=== PATIENT | male | born 1955 | race Caucasian/White ===

== ENCOUNTER 2019-07-11 16:26 | Inpatient (IN) | payer OTHER, MEDICARE ==
[~2019-07-11] VITALS: Ht 175.3 cm; Wt 92.3 kg
[2019-07-11 16:52] LABS: Source, Urine Clean Catch
[2019-07-11 16:57] LABS: Bilirubin, Urine Neg (Neg); Blood, Urine 3+ (Neg); Glucose Qualitative, Urine 4+ (Neg); Ketones, Urine 4+ (Neg); Leukocyte Esterase, Urine Neg (Neg); Nitrite, Urine Neg (Neg); Protein, Urine 2+ (Neg); Urobilinogen, Urine NORM (Normal)
[2019-07-11 16:59] LABS: BASOPHILS ABSOLUTE AUTO 0.06 K/mm3 (0.00-0.23); BASOPHILS PERCENT AUTO 0 % (0-2); EOSINOPHILS PERCENT AUTO 0 % (0-6); Hematocrit 48.1 % (37.0-53.0); Hemoglobin 16.7 g/dL (13.5-17.5); IMMATURE GRAN ABSOLUTE AUTO 0.12 K/mm3 (0.00-0.10); IMMATURE GRAN PERCENT AUTO 1 % (0-1); LYMPHOCYTES ABSOLUTE AUTO 0.92 K/mm3 (0.84-5.20); LYMPHOCYTES PERCENT AUTO 5 % (21-46); MONOCYTES ABSOLUTE AUTO 1.65 K/mm3 (0.16-1.47); MONOCYTES PERCENT AUTO 10 % (4-13); Mean Corpuscular HGB 29.1 pg (26.0-34.0); Mean Corpuscular HGB Conc 34.7 g/dL (31.5-36.5); Mean Corpuscular Volume 84 fL (80-100); Mean Platelet Volume 9.7 fL (9.1-12.4); NEUTROPHILS ABSOLUTE AUTO 14.21 K/mm3 (1.96-9.15); NEUTROPHILS PERCENT AUTO 84 % (41-73); Platelet Count 193 K/mm3 (150-400); RDW Coefficient Variation 13.2 % (11.7-14.2); RDW Standard Deviation 40.6 fL (35.1-46.3); Red Blood Cell Count 5.73 M/mm3 (4.30-5.90); White Blood Cell Count 16.96 K/mm3 (4.00-11.30)
[2019-07-11 17:05] LABS: Base Excess Venous -21.9 mmol/L; Bicarbonate Venous 10.7 mmol/L (24.0-30.0); PCO2 Venous 21.4 mmHg (38-42); pH Blood Venous 7.14 (7.34-7.37)
[2019-07-11 17:09] LABS: U Amphetamine Screen Not Detected; U Barbituate Screen Not Detected; U Benzodiazapine Screen Not Detected; U Buprenorphine Screen Not Detected; U Cannabinoids Screen Not Detected; U Cocaine Screen Not Detected; U Methadone Screen Not Detected; U Methamphetamine Screen Not Detected; U Opiates Screen Not Detected; U Oxycodone Screen Not Detected; U Phencyclidine Screen Not Detected; U Propoxyphene Screen Not Detected
[2019-07-11 17:20] LABS: Troponin I <0.015 ng/mL (0.000-0.040)
[2019-07-11 17:24] LABS: Alanine Aminotransfer (ALT/SGP 26 U/L (12-78); Albumin, Blood 3.1 g/dL (3.4-5.0); Albumin/Globulin Ratio 0.8 (0.8-1.8); Alk Phos 111 U/L (50-136); Anion Gap 25 mmol/L (6-16); Aspartate Aminotrans (AST/SGOT 9 U/L (12-37); Bilirubin, Total 0.8 mg/dL (0.1-1.0); Blood Urea Nitrogen 49 mg/dL (8-24); Bun/Creatinine Ratio 58.1 (12.0-20.0); CO2, Blood 8 mmol/L (21-32); Chloride, Blood 95 mmol/L (98-108); Creatinine, Blood 0.84 mg/dL (0.60-1.20); Globulin, Blood 3.8 g/dL (2.2-4.0); Glomerular Filtration Rate >60 (60-); Glucose, Blood 560 mg/dL (70-99); Potassium, Blood 3.7 mmol/L (3.5-5.5); Sodium, Blood 128 mmol/L (136-145); Total Protein, Blood 6.9 g/dL (6.4-8.2)
[2019-07-11 17:26] LABS: Appearance, Urine Clear (Clear); Color, Urine Yellow (P-Yellow)
[2019-07-11] MEDS ORDERED: NOVOLOG100 UNIT/1 SC (17:33)
[2019-07-11] MEDS ORDERED: INSULANPEN SC (17:33)
[2019-07-11] MEDS ORDERED: ATOR20 (17:34)
[2019-07-11 17:37] LABS: Beta-hydroxybutyrate 102.4 mg/dL (0.2-2.8)
[2019-07-11 17:40] LABS: Red Blood Cells, Urine Not Seen /hpf (0-2); Squamous Epithelial Cells Not Seen /hpf (Few); White Blood Cells, Urine Not Seen /hpf (0-5)
[2019-07-11 17:42] LABS: Bacteria Few /hpf; Hyaline Casts 0-2 /lpf (0-2); Mucus Light (0-Heavy)
[2019-07-11 18:47] LABS: Glucose, Blood 530 mg/dL (70-99); Phosphorus, Blood 3.6 mg/dL (2.5-4.9)
--- NOTE | 2019-07-11 19:44 | NUR ---
PT YELLING FROM ROOM "I'M STUCK", TO PTS ROOM AND FOUND PT ATTEMPTING TO GET OUT OF BED, PT STUCK BETWEEN BED RAIL AND MATTRESS, STILL IN BED. ASSISTED PT BACK INTO BED. PT STS HE WAS TRYING TO GET SOME WATER. EDUCATED PT ON NPO STATUS, PROVIDED ORAL SWAB, INSTRUCTED GLOBAL MARKETING MANAGER LIGHT USE, BED ALARM INITIATED.
[2019-07-11 21:21] LABS: Anion Gap 20 mmol/L (6-16); Blood Urea Nitrogen 47 mg/dL (8-24); Bun/Creatinine Ratio 62.9 (12.0-20.0); CO2, Blood 10 mmol/L (21-32); Calcium, Blood 8.1 mg/dL (8.5-10.1); Chloride, Blood 107 mmol/L (98-108); Creatinine, Blood 0.75 mg/dL (0.60-1.20); Glomerular Filtration Rate >60 (60-); Glucose, Blood 240 mg/dL (70-99); Potassium, Blood 3.6 mmol/L (3.5-5.5); Sodium, Blood 137 mmol/L (136-145)
--- NOTE | 2019-07-11 21:34 | NUR ---
PT TO ICU 3 VIA VÍCTOR WITH ED RN @ 1850, PT ALERT AND ORIENTED TO SELF, LOCATION, EVENT, AND FOLLOWING DIRECTIONS. PT SOMEWHAT RESTLESS IN BED, REPORTS SOME ANXIOUSNESS, ATTEMPTED TO GET OUT OF BED (SEE PREVIOUS NOTE) ATIVAN PROVIDED, RESTLESSNESS IMPROVED SOME CONFUSION NOTED AFTER ADMINISTRATION. O2 SATURATIONS> 90% ON RA, MONITOR SHOWS SINUS RHYTHM, HR 100-110, BP STABLE. BT HYPOACTIVE, PT REPORTS NOT EATING x3-4 DAYS AND VERY LITTLE TO DRINK OVER PAST 3-4 DAYS. PT REPOSITIONING SELF IN BED, R BKA. PT DENIES PAIN AT THIS TIME, REPORTS SOB, NOTIFIED PROVIDER PER ADMISSION COVID SCREENING, NO NEW ORDERS AT THIS TIME. INSULIN INF @ 8.7 UPON ARRIVAL, SEE FLOWSHEET FOR TITRATIONS. 1000ml NS+40MEQ POTASSIUM INF @ 250ml/hr (10MEQ/HR), NS BOLUS INF @ 500ml/hr SWITCHED TO MAINTENANCE OF 200ml/hr ONCE BOLUS COMPLETE.
[2019-07-11 23:42] LABS: Source, Urine Catheter
[2019-07-11 23:50] LABS: Appearance, Urine Clear (Clear); Bilirubin, Urine Neg (Neg); Blood, Urine 4+ (Neg); Color, Urine Yellow (P-Yellow); Glucose Qualitative, Urine 4+ (Neg); Ketones, Urine 4+ (Neg); Leukocyte Esterase, Urine Neg (Neg); Nitrite, Urine Neg (Neg); Protein, Urine 3+ (Neg); Urobilinogen, Urine NORM (Normal)
--- NOTE | 2019-07-11 23:53 | NUR ---
CALL PLACED TO YOANNA LANDRY STATE COMPTROLLER REGARDING PTS ONGOING RESTLESSNESS, PT PULLED IV, ATIVAN ORDERS UPDATED. PT CONTINUED TO BE RESTLESS IN BED, PULLING AT LINES, STS HE NEEDS TO GO TO THE BATHROOM. ATTEMPTED TO ASSIST PT WITH URINAL, PT ATTEMPTED TO CLIMB OUT OF BED, NOT REDIRECTABLE. PT ORIENTED TO SELF ONLY. FOLLOW CALL PLACED TO YOANNA LANDRY NP, NEW ORDERS FOR MOBLEY, PRECEDEX GTT, AND NON VIOLENT WRIST RESTRAINTS. MOBLEY PLACED WITH IMMEDIATE RETURN OF 600ml OF CLEAR YELLOW URINE, SPECIMENT SENT TO LAB. RESTRAINTS PLACED, PT PULLS AT RESTRAINTS. PRECEDEX INITIATED AT 0.4 (SEE FLOWSHEET).
[2019-07-11 23:56] LABS: Bacteria Few /hpf; Red Blood Cells, Urine 0-2 /hpf (0-2); Squamous Epithelial Cells Not Seen /hpf (Few); White Blood Cells, Urine 0-2 /hpf (0-5)
--- NOTE | 2019-07-12 | NUR ---
YOANNA LANDRY TO PTS ROOM, PT RESTLESS IN BED, CONTINUES TO PULL AT RESTRAINTS. ORDER FOR VBG.
--- NOTE | 2019-07-12 00:15 | NUR ---
CALL PLACED TO ANNETTE, PTS STATED EMERGENCY CONTACT PROVIDED UPON ADMISSION TO HOSPITAL. ANNETTE SCHAFFER PT RECENTLY MOVED BACK TO [place] FROM [place] AND LIVES WITH HIS FATHER WHO HAS HX OF DEMENTIA. ANNETTE SCHAFFER PT HAS BEEN ILL FOR SEVERAL DAYS AND HAS BEEN HAVING EPISODES OF AMS. REPORTS PT GOES TO [facility] FOR [facility]ARE BUT HAS BEEN UNABLE TO GET AN APPOINTMENT SINCE MOVING BACK TO [place].
[2019-07-12 01:32] LABS: Base Excess Venous -15.2 mmol/L; Bicarbonate Venous 14.4 mmol/L (24.0-30.0); PCO2 Venous 27.2 mmHg (38-42); PO2 Venous 121 mmHg (38-42); pH Blood Venous 7.25 (7.34-7.37)
[2019-07-12 01:57] LABS: Anion Gap 15 mmol/L (6-16); Blood Urea Nitrogen 41 mg/dL (8-24); Bun/Creatinine Ratio 57.9 (12.0-20.0); CO2, Blood 13 mmol/L (21-32); Calcium, Blood 7.8 mg/dL (8.5-10.1); Chloride, Blood 112 mmol/L (98-108); Creatinine, Blood 0.71 mg/dL (0.60-1.20); Glomerular Filtration Rate >60 (60-); Glucose, Blood 220 mg/dL (70-99); Potassium, Blood 3.8 mmol/L (3.5-5.5); Sodium, Blood 140 mmol/L (136-145)
[2019-07-12 04:12] LABS: BASOPHILS ABSOLUTE AUTO 0.03 K/mm3 (0.00-0.23); BASOPHILS PERCENT AUTO 0 % (0-2); EOSINOPHILS PERCENT AUTO 0 % (0-6); Hematocrit 41.5 % (37.0-53.0); Hemoglobin 14.8 g/dL (13.5-17.5); IMMATURE GRAN ABSOLUTE AUTO 0.05 K/mm3 (0.00-0.10); IMMATURE GRAN PERCENT AUTO 0 % (0-1); LYMPHOCYTES ABSOLUTE AUTO 0.83 K/mm3 (0.84-5.20); LYMPHOCYTES PERCENT AUTO 6 % (21-46); MONOCYTES ABSOLUTE AUTO 1.93 K/mm3 (0.16-1.47); MONOCYTES PERCENT AUTO 15 % (4-13); Mean Corpuscular HGB 28.8 pg (26.0-34.0); Mean Corpuscular HGB Conc 35.7 g/dL (31.5-36.5); Mean Platelet Volume 9.6 fL (9.1-12.4); NEUTROPHILS PERCENT AUTO 79 % (41-73); Platelet Count 163 K/mm3 (150-400); RDW Coefficient Variation 13.2 % (11.7-14.2); RDW Standard Deviation 38.6 fL (35.1-46.3); Red Blood Cell Count 5.13 M/mm3 (4.30-5.90); White Blood Cell Count 13.34 K/mm3 (4.00-11.30)
[2019-07-12 04:14] LABS: Mean Corpuscular Volume 81 fL (80-100)
--- NOTE | 2019-07-12 04:20 | NUR ---
PT TO CT VIA BED WITH THIS RN.
[2019-07-12 04:41] LABS: Anion Gap 9 mmol/L (6-16); Blood Urea Nitrogen 41 mg/dL (8-24); Bun/Creatinine Ratio 57.4 (12.0-20.0); CO2, Blood 16 mmol/L (21-32); Calcium, Blood 7.9 mg/dL (8.5-10.1); Chloride, Blood 114 mmol/L (98-108); Creatinine, Blood 0.71 mg/dL (0.60-1.20); Glomerular Filtration Rate >60 (60-); Glucose, Blood 173 mg/dL (70-99); Potassium, Blood 4.2 mmol/L (3.5-5.5); Sodium, Blood 139 mmol/L (136-145)
--- NOTE | 2019-07-12 06:37 | NUR ---
SHIFT SUMMARY SEE PREVIOUS NOTES, PT WITH INCREASED CONFUSION AND AGITATION, PLACED IN NON VIOLENT WRIST RESTRAINTS AND PRECEDEX GTT INF (SEE FLOWSHEET). PT REMAINS CONFUSED, ORIENTED TO SELF ONLY, DOES NOT FOLLOW DIRECTIONS, AROUSES WITH VERBAL STIMULI AND NURSING CARE. CALL PLACED TO DR CRESPO REGARDING PTS CONFUSION AND REPORT IN H&P OF FALLING AT HOME, CT ORDERED AND COMPLETED. O2 SATURATIONS MAINTAINED>90% ON RA. MONITOR SHOWS SINUS RHYTHM, HR 60'S. MOBLEY IN PLACE DRAINING YELLOW URINE. INSULIN GTT INFUSING, SEE FLOWSHEET FOR TITRATIONS, D5 1/2NS INF @ 200 ml/hr.
--- NOTE | 2019-07-12 07:40 | NUR ---
ASSUMED CARE REPORT RECEIVED FROM JUDY MICHELLE. PT RESTING QUIETLY IN BED. RESTRAINTS ON AND PRECEDEX INFUSING. PRECEDEX TITRATED DOWN PT APPEARS TO BE SLEEPING HEAVILY. INSULIN GTT INFUSING WELL IVF.
[2019-07-12 09:14] LABS: Anion Gap 6 mmol/L (6-16); Blood Urea Nitrogen 39 mg/dL (8-24); Bun/Creatinine Ratio 52.6 (12.0-20.0); CO2, Blood 19 mmol/L (21-32); Calcium, Blood 7.5 mg/dL (8.5-10.1); Chloride, Blood 115 mmol/L (98-108); Creatinine, Blood 0.74 mg/dL (0.60-1.20); Glomerular Filtration Rate >60 (60-); Glucose, Blood 213 mg/dL (70-99); Potassium, Blood 3.9 mmol/L (3.5-5.5); Sodium, Blood 140 mmol/L (136-145)
--- NOTE | 2019-07-12 09:37 | NUR ---
DISCUSSED LABS WITH DR. LINDA. CONTINUE INSULIN GTT AND REPEAT LAB AT 1300.
--- NOTE | 2019-07-12 12:17 | NUR ---
REASSESSMENT: PRECEDEX WAS TITRATED DOWN THROUGHOUT THE MORNING TILL IT WAS OFF. PT CONTINUES TO BE SLEEPY, BUT WAKES UP EASILY. RESTRAINTS TAKEN OFF AT 1100 AND PT BEING WATCHED CLOSELY. BED ALARM ON. PT WOKE UP AND WAS ASKING FOR WATER. GAVE PT A TEASPOON OF WATER AND HE ASPIRATED ON IT. SUCTIONED PT AND PT CONTINUES TO COUGH UP BLACK SPUTUM. HE IS ORIENTED ONLY TO HIMSELF STILL, BUT FOLLOWS DIRECTIONS. SR, BP STABLE. INSULIN GTT STILL INFUSING. CONTINUING TO MONITOR.
[2019-07-12 13:27] LABS: Anion Gap 7 mmol/L (6-16); Blood Urea Nitrogen 35 mg/dL (8-24); Bun/Creatinine Ratio 50.4 (12.0-20.0); CO2, Blood 18 mmol/L (21-32); Calcium, Blood 7.6 mg/dL (8.5-10.1); Chloride, Blood 115 mmol/L (98-108); Glomerular Filtration Rate >60 (60-); Glucose, Blood 186 mg/dL (70-99); Potassium, Blood 3.7 mmol/L (3.5-5.5); Sodium, Blood 140 mmol/L (136-145)
--- NOTE | 2019-07-12 13:50 | NUR ---
CALLED DR. LINDA WITH BMP RESULTS. RECEIVED ORDER TO CONTINUE INSULIN GTT AND RECHECK BMP IN 4 HOURS.
--- NOTE | 2019-07-12 14:41 | NUR ---
HTN PT'S SBP HAS BEEN 180-200S. PRN HYDRALAZINE GIVEN WITH NO IMPROVEMENT. PAIN MEDICATION GIVEN AND SBP REMAINS IN THE LOW 200S. DR. LINDA NOTIFIED AND RECEIVED ORDERS FOR INCREASE IN HYDRALAZINE DOSE AND FOR CLONIDINE PATCH, SEE ORDERS.
[2019-07-12 17:52] LABS: Anion Gap 8 mmol/L (6-16); Blood Urea Nitrogen 28 mg/dL (8-24); Bun/Creatinine Ratio 48.1 (12.0-20.0); CO2, Blood 17 mmol/L (21-32); Calcium, Blood 7.9 mg/dL (8.5-10.1); Chloride, Blood 112 mmol/L (98-108); Creatinine, Blood 0.58 mg/dL (0.60-1.20); Glomerular Filtration Rate >60 (60-); Glucose, Blood 272 mg/dL (70-99); Potassium, Blood 3.3 mmol/L (3.5-5.5); Sodium, Blood 137 mmol/L (136-145)
--- NOTE | 2019-07-12 18:15 | NUR ---
REVIEWED PT'S LABS WITH DR. LINDA. RECEIVED ORDERS FOR IV POTASSIUM AND CONTINGUING LABS. PT'S INSULIN GTT STILL INFUSING. DISCUSSED SWITCHING IV FLUIDS TO D10 IF PT'S BLOOD SUGAR STARTS DECREASING. MONITOR FOR NOW.
--- NOTE | 2019-07-12 21:00 | NUR ---
ASSUMPTION OF CARE ASSUMED CARE OF PT @ 1900, PT ALERT AND ORIENTED TO SELF, EVENT, LOCATION AND FOLLOWING DIRECTIONS. PT MAKES FREQUENT REQUESTS FOR SODA OR WATER, EXPLAINED NPO STATUS DUE TO NAUSEA AND FAILED SWALLOW EVAL TODAY. PT MAINTAINS O2 SATURATIONS ON RA. MONITOR SHOWS SINUS RHYTHM, HR 90'S-105, HTN NOTED. PT MANCINI AND REPOSTIONS SELF IN BED. PT REPORTS SOME NAUSEA, PRN MEDICATIONS PROVIDED FOR RELEIF. MOBLEY IN PLACE DRAINING CLOUDY YELLOW URINE. INSULIN GTT INF, SEE FLOWSHEET FOR TITRATIONS.
[2019-07-12 21:48] LABS: Anion Gap 7 mmol/L (6-16); Blood Urea Nitrogen 23 mg/dL (8-24); Bun/Creatinine Ratio 39.1 (12.0-20.0); CO2, Blood 18 mmol/L (21-32); Calcium, Blood 7.8 mg/dL (8.5-10.1); Chloride, Blood 115 mmol/L (98-108); Creatinine, Blood 0.59 mg/dL (0.60-1.20); Glomerular Filtration Rate >60 (60-); Glucose, Blood 262 mg/dL (70-99); Potassium, Blood 3.6 mmol/L (3.5-5.5); Sodium, Blood 140 mmol/L (136-145)
[2019-07-13 01:34] LABS: Anion Gap 6 mmol/L (6-16); Blood Urea Nitrogen 19 mg/dL (8-24); Bun/Creatinine Ratio 32.6 (12.0-20.0); CO2, Blood 18 mmol/L (21-32); Calcium, Blood 7.8 mg/dL (8.5-10.1); Chloride, Blood 117 mmol/L (98-108); Creatinine, Blood 0.58 mg/dL (0.60-1.20); Glomerular Filtration Rate >60 (60-); Glucose, Blood 168 mg/dL (70-99); Potassium, Blood 3.5 mmol/L (3.5-5.5); Sodium, Blood 141 mmol/L (136-145)
[2019-07-13 05:49] LABS: Anion Gap 6 mmol/L (6-16); Blood Urea Nitrogen 18 mg/dL (8-24); Bun/Creatinine Ratio 32.8 (12.0-20.0); CO2, Blood 19 mmol/L (21-32); Calcium, Blood 7.8 mg/dL (8.5-10.1); Chloride, Blood 117 mmol/L (98-108); Creatinine, Blood 0.55 mg/dL (0.60-1.20); Glomerular Filtration Rate >60 (60-); Glucose, Blood 120 mg/dL (70-99); Potassium, Blood 3.3 mmol/L (3.5-5.5); Sodium, Blood 142 mmol/L (136-145)
--- NOTE | 2019-07-13 07:24 | NUR ---
SHIFT SUMMARY NO ACUTE CHANGES THIS SHIFT, PT REMAINS ALERT, SOME MILD CONFUSION DURING NIGHT, REMAINS CALM COOPERATIVE AND REDIRECTABLE, PT DID NOT SLEEP WELL, AWAKEN FREQUENTLY WITH NURSING CARE. INSULIN GTT TITRATED FOR GLUCOSE CONTROL (SEE FLOWSHEET), CURRENTLY INFUSING AT 6u/hr, CO2 IMPROVING BUT REMAINS LOW. PT FREQUENTLY REQUEST DRINKS OF WATER AND FOOD, REMINDED PT OF FAILED SWALLOW EVAL AND NEED FOR RE-EVALUATION TODAY. MOBLEY REMAINS IN PLACE DRAINING DARK YELLOW TO ORANGE CLOUDY URINE. PT REMAINS ON RA T/O SHIFT, O2 SATURATIONS>90%.
--- NOTE | 2019-07-13 08:59 | NUR ---
ASSUMED CARE OF PT AT 0700. BEDSIDE REPORT FROM VIVIANA KIM. PT RESTING IN BED. WAKES c VERBAL STIMULI. A&OX 3. ANSWERS QUESTIONS APPROPRIATELY. PT ONLY COMPLAINT IS LACK OF FOOD. EDUCATED PT THAT SPEECH THERAPY WOULD REASSESS NPO STATUS THIS SHIFT. ORAL CARE PROVIDED. PT c PRODUCTIVE COUGH, THICK YELLOW REYES SECRETIONS. MANAGING SECRETIONS. LUNGS CLEAR. PT P/W/D. INSULIN INFUSING AT 6 UNITS/HR, D51/2NS AT 200ML/HR. WILL MONITOR CHEMBG q1. MOBLEY PATENT AND DRAINING CLOUDY JORDAN URINE TO GRAVITY. R BKA. KCL INFUSING FOR K 3.[address] LNIDA ROUNDED, CONTINUE INSULIN GTT UNTIL CO2 NORMALIZES. VSS. WILL CONTINUE TO MONITOR.
[2019-07-13 09:31] LABS: Anion Gap 7 mmol/L (6-16); Blood Urea Nitrogen 15 mg/dL (8-24); Bun/Creatinine Ratio 29.4 (12.0-20.0); CO2, Blood 18 mmol/L (21-32); Calcium, Blood 7.4 mg/dL (8.5-10.1); Chloride, Blood 115 mmol/L (98-108); Creatinine, Blood 0.51 mg/dL (0.60-1.20); Glomerular Filtration Rate >60 (60-); Glucose, Blood 116 mg/dL (70-99); Potassium, Blood 3.4 mmol/L (3.5-5.5); Sodium, Blood 140 mmol/L (136-145)
[2019-07-13 14:49] LABS: Anion Gap 5 mmol/L (6-16); Blood Urea Nitrogen 14 mg/dL (8-24); Bun/Creatinine Ratio 25.2 (12.0-20.0); CO2, Blood 19 mmol/L (21-32); Calcium, Blood 7.5 mg/dL (8.5-10.1); Chloride, Blood 116 mmol/L (98-108); Creatinine, Blood 0.56 mg/dL (0.60-1.20); Glomerular Filtration Rate >60 (60-); Glucose, Blood 144 mg/dL (70-99); Potassium, Blood 3.5 mmol/L (3.5-5.5); Sodium, Blood 140 mmol/L (136-145)
--- NOTE | 2019-07-13 15:57 | NUR ---
Initial spiritual care note: Mr. Johnson is non-cheondoism, but felt comfortable enough to talk to me about the of his dad last night. He has been living with his father and trying to care for him. Aaron feels guilty that he wasn't there. His mom last year. He has also lost his only brother. His [id number] appears to be a good support. We spoke at length about his numerous losses, and he responded well to gentle bereavement international student counselor and emotional affirmation. He will certainly benefit from on-going international student counselor. I will continue to see Aaron as schedule permits.
--- NOTE | 2019-07-13 17:52 | NUR ---
SHIFT SUMMARY PT PHYSICAL ASSESSMENT UNCHANGED THIS SHIFT. PT CONTINUES ON INSULIN DRIP AT 6 UNITS/HR AND D5 1/2 NS AT 200ML/HR. CHEMBG 110'S-150'S THIS SHIFT. REPEAT CO2 19. PT CONTINUES TO BE NPO POST REPEAT SWALLOW EVAL BY ST TODAY, PLAN FOR REEVAL TOMORROW. PT WORKED c PT TODAY, WEAK, ONE PERSON ASSIST TO CHAIR. BED BATH AND ORAL CARE q4 COMPLETE TODAY. MOBLEY D/C'D. PT ABLE TO USE URINAL INDEPENDENTLY. VSS. WILL CONTINUE TO MONITOR UNTIL REPORT TO ONCOMING NURSE.
--- NOTE | 2019-07-13 19:51 | NUR ---
ASSUMED CARE OF PT AT 1900. REPORT RECEIVED, PT PARTICIPATED. NO FAMILY PRESENT. PT IS ALERT, ORIENTED, AND IN PLEASANT MOOD. PT WANTS TO EAT, LEMON SWABS GIVEN. PT COUGHING WITH WET SWABS.
[2019-07-13] MEDS ORDERED: ZOCOR20 MG PO (19:57)
[2019-07-13] MEDS ORDERED: LISI20 PO (19:57)
[2019-07-14 03:25] LABS: BASOPHILS ABSOLUTE AUTO 0.02 K/mm3 (0.00-0.23); BASOPHILS PERCENT AUTO 0 % (0-2); EOSINOPHILS ABSOLUTE AUTO 0.08 K/mm3 (0.00-0.68); EOSINOPHILS PERCENT AUTO 1 % (0-6); Hematocrit 34.6 % (37.0-53.0); Hemoglobin 12.2 g/dL (13.5-17.5); IMMATURE GRAN ABSOLUTE AUTO 0.11 K/mm3 (0.00-0.10); IMMATURE GRAN PERCENT AUTO 2 % (0-1); LYMPHOCYTES ABSOLUTE AUTO 1.43 K/mm3 (0.84-5.20); LYMPHOCYTES PERCENT AUTO 20 % (21-46); MONOCYTES ABSOLUTE AUTO 0.73 K/mm3 (0.16-1.47); MONOCYTES PERCENT AUTO 10 % (4-13); Mean Corpuscular HGB 28.9 pg (26.0-34.0); Mean Corpuscular HGB Conc 35.3 g/dL (31.5-36.5); Mean Corpuscular Volume 82 fL (80-100); Mean Platelet Volume 9.7 fL (9.1-12.4); NEUTROPHILS ABSOLUTE AUTO 4.97 K/mm3 (1.96-9.15); NEUTROPHILS PERCENT AUTO 68 % (41-73); Platelet Count 116 K/mm3 (150-400); RDW Coefficient Variation 14.1 % (11.7-14.2); RDW Standard Deviation 41.9 fL (35.1-46.3); Red Blood Cell Count 4.22 M/mm3 (4.30-5.90); White Blood Cell Count 7.34 K/mm3 (4.00-11.30)
[2019-07-14 03:45] LABS: Anion Gap 3 mmol/L (6-16); Blood Urea Nitrogen 8 mg/dL (8-24); Bun/Creatinine Ratio 16.9 (12.0-20.0); CO2, Blood 22 mmol/L (21-32); Calcium, Blood 7.1 mg/dL (8.5-10.1); Chloride, Blood 113 mmol/L (98-108); Creatinine, Blood 0.47 mg/dL (0.60-1.20); Glomerular Filtration Rate >60 (60-); Glucose, Blood 131 mg/dL (70-99); Sodium, Blood 138 mmol/L (136-145)
--- NOTE | 2019-07-14 05:19 | NUR ---
NOTIFIED DR. CRESPO OF PT'S DKA STATUS AND LAB VALUES, INCLUDING IMPROVED CO2 LEVEL 40MEQ IV K+ ORDERED.
--- NOTE | 2019-07-14 06:20 | NUR ---
PT HAS BEEN AWAKE MOST OF THE NIGHT, WITH FREQUENT GLUCOSE CHECKS. PT IS COOPERATIVE WITH CARE. PT TURNING SELF VERY FREQUENTLY BACK AND FORTH. PT REMAINED ALERT AND ORIENTED THE ENTIRE NIGHT, WITH NO SIGNS OF CONFUSION. PT STATES A LIST OF ALL THE FOODS HE WISHES TO EAT SOON WE LET HIM, BUT DOES SO IN A JOKING WAY, WITH A SMILE, NOT ANGRY. PT GIVEN MORE LEMON SWABS.
--- NOTE | 2019-07-14 09:39 | NUR ---
CARE ASSUMED CARE AND REPORT ASSUMED FROM MIKAYLA KIM. PT SLEEPING BUT EASILY AROUSABLE. INSULIN GTT AND D5 1/2 NS INFUSING. LANTUS ADMINISTERED AT 0845. WILL TURN OFF INSULIN GTT AND WILL MONTIOR BLOOD SUGAR CLOSELY. NSR, HR 80S. BP WNL. AFEBRILE. POTASSIUM REPLACEMENT INFUSING. STRICT NPO AT THIS TIME. AWAITING SPEECH FOR REEVALUATION. PT A/O X 3, CALM AND COOPERATIVE THIS AM. WILL CONTINUE TO MONITOR.
--- NOTE | 2019-07-14 11:23 | NUR ---
REASSESSMENT PT WENT FOR BARIUM SWALLOW EVAL AND FAILED. NOW BACK IN HIS ROOM AND IS UPSET ABOUT NOT BEING ABLE TO EAT OR DRINK ANYTHING. CHLOROSEPTIC SPRAY ADMINISTERED FOR THROAT PAIN PER PT REQUEST. VSS. AFEBRILE. NSR, HR 80S. BP WNL. INSULIN GTT DISCONTINUED. AWAITING MEDICAL FLOOR BED. WILL CONTINUE TO MONITOR.
--- NOTE | 2019-07-14 11:38 | NUR ---
TRANSFER HANDOFF REPORT CALLED TO [facility] ON MEDICAL FLOOR. PT TO BE TRANSFERRED TO ROOM 309.
--- NOTE | 2019-07-14 11:50 | NUR ---
PT. ARRIVED TO ROOM VIA BED, USED SLIDER SHEET TO MOVE HIME TO BED HE SAID HE WAS TOO WEAK TO STAND AND TRANSFER TO BED. PT. COVERED WITH SHEET ONLY , NO CLOTHES ON. PT. APPEARS TO BE SOMEWHAT CONFUSED TO WHAT DAY OR PLACE THIS WAS. ASKED IF PT. ИРИНА THE PELAE[place] LIVED HERE, ORIENTED HIM TO WHERE HE WAS AND THE ROOM HE WAS IN. PT'S PROSTHETIC BROUGHT TO ROOM WITH HIM FOR HIS RBKA. PT. UNHAPPY HE CANT HAVE ANYTHING TO EAT OR DRINK. PT. GIVEN LEMON GLYCERIN SWABS. .
[2019-07-14 13:29] LABS: Anion Gap 7 mmol/L (6-16); Blood Urea Nitrogen 7 mg/dL (8-24); Bun/Creatinine Ratio 14.4 (12.0-20.0); CO2, Blood 21 mmol/L (21-32); Calcium, Blood 7.4 mg/dL (8.5-10.1); Chloride, Blood 110 mmol/L (98-108); Creatinine, Blood 0.49 mg/dL (0.60-1.20); Glomerular Filtration Rate >60 (60-); Glucose, Blood 261 mg/dL (70-99); Potassium, Blood 3.8 mmol/L (3.5-5.5); Sodium, Blood 138 mmol/L (136-145)
--- NOTE | 2019-07-14 16:26 | NUR ---
Spoke with Bedside JUDY Saldivar and discussed case. Janna reports Pt is not willing to consider peg tube placement. Spoke with [facility] prior to visit and discussed case. Pt failed barium swallow eval today. Karla is recommending strict NPO. Karla reports Pt has some possible rehab potential to regain safe swallow but will be a lengthy proces of 8 weeks or more. Pt resting in bed upon arrival. Engaged in therapeutic discussion and listening. Listened as Pt reports feeling down due to his most recent findings regarding his swallow and his recent loss of his dad. Continued therapeutic listening and reasoning for not wanting a peg tube placement. Discussed the potential of tube placement being temporary until he regains a safe swallow. Pt reports he is willing to consider peg tube placement if there is potential for just being temporary and continued ST therapy. Educated Pt of the importance of complying with remaining NPO with peg tube placement and the implications of taking food and fluid by mouth. Pt is agreeable for continued therapeutic Palliative Care visits. Spoke with Bedside JUDY Saldivar and discussed case. Spoke with Dr Jackson, discussed case, and relayed Pt's willingness to consider peg tube. Dr Jackson will place consult. Palliative Care will remain available.
--- NOTE | 2019-07-14 18:06 | NUR ---
PT. SLEEPING, CLINIMIX AND FATTY LIPIDS INFUSING. PALLIATIVE CARE NOTIFIED OF PT'S REQUEST TO EAT AND DRINK, NO MATTER WHAT HAPPENS. THATS NO WAY TO LIVE STATES PT. AFTER TALKING WITH DEVEN WHITNEY PALLIATIVE CARE RN HE HAS DECIDED HE WOULD TRY A FEEDING TUBE. DR. VÁSQUEZ NOTIFIED OF NEED FOR FEEDING TUBE,HE WILL SEE PT. IN AM.
[2019-07-15 05:16] LABS: BASOPHILS ABSOLUTE AUTO 0.01 K/mm3 (0.00-0.23); BASOPHILS PERCENT AUTO 0 % (0-2); EOSINOPHILS ABSOLUTE AUTO 0.05 K/mm3 (0.00-0.68); EOSINOPHILS PERCENT AUTO 1 % (0-6); Hematocrit 38.9 % (37.0-53.0); Hemoglobin 13.5 g/dL (13.5-17.5); IMMATURE GRAN PERCENT AUTO 1 % (0-1); LYMPHOCYTES ABSOLUTE AUTO 1.28 K/mm3 (0.84-5.20); LYMPHOCYTES PERCENT AUTO 15 % (21-46); MONOCYTES ABSOLUTE AUTO 0.96 K/mm3 (0.16-1.47); MONOCYTES PERCENT AUTO 12 % (4-13); Mean Corpuscular HGB 28.8 pg (26.0-34.0); Mean Corpuscular HGB Conc 34.7 g/dL (31.5-36.5); Mean Corpuscular Volume 83 fL (80-100); Mean Platelet Volume 9.8 fL (9.1-12.4); NEUTROPHILS ABSOLUTE AUTO 5.89 K/mm3 (1.96-9.15); NEUTROPHILS PERCENT AUTO 71 % (41-73); Platelet Count 139 K/mm3 (150-400); RDW Coefficient Variation 13.9 % (11.7-14.2); RDW Standard Deviation 41.1 fL (35.1-46.3); Red Blood Cell Count 4.69 M/mm3 (4.30-5.90); White Blood Cell Count 8.29 K/mm3 (4.00-11.30)
--- NOTE | 2019-07-15 05:58 | NUR ---
SUMMARY NO ISSUES NOTED. PT VOIDING WELL. PT CBG CHECKED AND TX PER EMAR. PT HAS SLEPT WELL T/O SHIFT. PT CURRENTLY SLEEPING IN NO DISTRESS. CALL LIGHT IN REACH.
[2019-07-15 06:00] LABS: Anion Gap 7 mmol/L (6-16); Blood Urea Nitrogen 11 mg/dL (8-24); Bun/Creatinine Ratio 24.7 (12.0-20.0); CO2, Blood 24 mmol/L (21-32); Calcium, Blood 7.6 mg/dL (8.5-10.1); Chloride, Blood 106 mmol/L (98-108); Creatinine, Blood 0.45 mg/dL (0.60-1.20); Glomerular Filtration Rate >60 (60-); Glucose, Blood 300 mg/dL (70-99); Magnesium, Blood 2.5 mg/dL (1.6-2.4); Phosphorus, Blood 2.2 mg/dL (2.5-4.9); Potassium, Blood 3.7 mmol/L (3.5-5.5); Sodium, Blood 137 mmol/L (136-145)
--- NOTE | 2019-07-15 17:50 | NUR ---
SHIFT SUMMARY PATIENT DENIES PAIN, NAUSEA, AND SHORTNESS OF BREATH. PATIENT WORKED WITH PT TODAY. PATIENT UP IN WHEELCHAIR STAND PIVOT. DR. BAUMAN CONSULTED ON PATIENT. PATIENT AGREED TO PEG TUBE PLACEMENT. PATIENT STRICT NPO BUT HAS STATED MANY TIMES THAT "IT IS HIS BODY AND HIS CHOICE' WHEN ADVISED AGAINST SUCKING ON MOISTENED TOOTHETTES. PATIENT HAS BEEN MADE AWARE OF THE RISKS OF ASPIRATION SEVERAL TIMES. DR. LINDA INFORMED. CLINIMIX AND LIPID NUTRITION RUNNING.
[2019-07-16 04:36] LABS: BASOPHILS ABSOLUTE AUTO 0.01 K/mm3 (0.00-0.23); BASOPHILS PERCENT AUTO 0 % (0-2); EOSINOPHILS ABSOLUTE AUTO 0.07 K/mm3 (0.00-0.68); EOSINOPHILS PERCENT AUTO 1 % (0-6); Hemoglobin 12.9 g/dL (13.5-17.5); IMMATURE GRAN ABSOLUTE AUTO 0.05 K/mm3 (0.00-0.10); IMMATURE GRAN PERCENT AUTO 1 % (0-1); LYMPHOCYTES ABSOLUTE AUTO 1.17 K/mm3 (0.84-5.20); LYMPHOCYTES PERCENT AUTO 16 % (21-46); MONOCYTES ABSOLUTE AUTO 1.13 K/mm3 (0.16-1.47); MONOCYTES PERCENT AUTO 16 % (4-13); Mean Corpuscular HGB 29.3 pg (26.0-34.0); Mean Corpuscular HGB Conc 34.9 g/dL (31.5-36.5); Mean Corpuscular Volume 84 fL (80-100); NEUTROPHILS ABSOLUTE AUTO 4.78 K/mm3 (1.96-9.15); NEUTROPHILS PERCENT AUTO 66 % (41-73); Platelet Count 144 K/mm3 (150-400); RDW Coefficient Variation 13.7 % (11.7-14.2); RDW Standard Deviation 41.9 fL (35.1-46.3); Red Blood Cell Count 4.41 M/mm3 (4.30-5.90); White Blood Cell Count 7.21 K/mm3 (4.00-11.30)
[2019-07-16 04:53] LABS: Anion Gap 7 mmol/L (6-16); Blood Urea Nitrogen 12 mg/dL (8-24); Bun/Creatinine Ratio 27.6 (12.0-20.0); CO2, Blood 27 mmol/L (21-32); Calcium, Blood 7.8 mg/dL (8.5-10.1); Chloride, Blood 103 mmol/L (98-108); Creatinine, Blood 0.43 mg/dL (0.60-1.20); Glomerular Filtration Rate >60 (60-); Glucose, Blood 274 mg/dL (70-99); Potassium, Blood 3.5 mmol/L (3.5-5.5); Sodium, Blood 137 mmol/L (136-145)
--- NOTE | 2019-07-16 12:06 | NUR ---
SOME PARTS OF COMPUTER ON DOWN TIME. UNABLE TO CHART VITALS ON FLOW SHEET. VS TEMP 98.5 RESP RATE 20 HEART RATE 83 O2 SAT 96% BP 177/88.
--- NOTE | 2019-07-16 12:37 | NUR ---
PT TRANSPORTED TO [facility]. AGREES WITH PLANNED PROCEDURE. LUNG SOUNDS CLEAR.
--- NOTE | 2019-07-16 14:35 | NUR ---
07/16/19 1435 Neida Escobedo [facility] [place]. SEE ANESTESIA RECORD
--- NOTE | 2019-07-16 17:49 | NUR ---
SHIFT SUMMARY PATIENT UP IN WHEELCHAIR THIS MORNING. PATIENT WENT FOR PEG TUBE PLACEMENT THIS AFTERNOON. PEG MAY BE USED FOR MEDICATION AND FEED INITIATED 4 HOURS AFTER PLACEMENT. PATIENT DENIES PAIN, NAUSEA, AND SHORTNESS OF BREATH. PATIENT MEDICATED X1 FOR ELEVATED BLOOD PRESSURE.
--- NOTE | 2019-07-16 21:12 | NUR ---
PT HAS INCREASED AGGITATION DUE TO NPO ORDER, PT ATTEMPTED TO CONSUME STERIL WATER BY MOUTH FROM CONTAINER. REMOVED STERIL WATER FROM ROOM AND RESTATED THE IMPORTANCE OF FOLLOWING THE NPO ORDER TO PT AND NOTIFIED NURSE.
--- NOTE | 2019-07-17 02:14 | NUR ---
LATE NOTE' 2029 Patient temp elevated at start of shift. not amenable to tylenol. BP back up in 190's as it was at 1700 when he was given hydralazine for a blood pressure of 199/99. Call placed to night hospitalist to inform. orders received and IV metoprolol and childrens ibuprophen elixer given per emar. 2099 Patient angry that he cannot have more green swabs to suck on with H20 and Juice. I explained again as it was yesterday, that he runs the risk of aspiration which could possibly be the reason for his temp right now. Awaiting CXR results. 2229. Tube feeding started at 25 ml hour with q 4 hour 30ml flushes. Patient tolerating well.
[2019-07-17 04:57] LABS: BASOPHILS ABSOLUTE AUTO 0.04 K/mm3 (0.00-0.23); BASOPHILS PERCENT AUTO 0 % (0-2); EOSINOPHILS ABSOLUTE AUTO 0.03 K/mm3 (0.00-0.68); EOSINOPHILS PERCENT AUTO 0 % (0-6); Hematocrit 35.2 % (37.0-53.0); Hemoglobin 12.3 g/dL (13.5-17.5); IMMATURE GRAN ABSOLUTE AUTO 0.05 K/mm3 (0.00-0.10); IMMATURE GRAN PERCENT AUTO 1 % (0-1); LYMPHOCYTES ABSOLUTE AUTO 1.31 K/mm3 (0.84-5.20); LYMPHOCYTES PERCENT AUTO 13 % (21-46); MONOCYTES ABSOLUTE AUTO 1.34 K/mm3 (0.16-1.47); MONOCYTES PERCENT AUTO 13 % (4-13); Mean Corpuscular HGB 29.3 pg (26.0-34.0); Mean Corpuscular HGB Conc 34.9 g/dL (31.5-36.5); Mean Corpuscular Volume 84 fL (80-100); Mean Platelet Volume 9.3 fL (9.1-12.4); NEUTROPHILS ABSOLUTE AUTO 7.65 K/mm3 (1.96-9.15); NEUTROPHILS PERCENT AUTO 73 % (41-73); Platelet Count 152 K/mm3 (150-400); RDW Coefficient Variation 13.7 % (11.7-14.2); RDW Standard Deviation 41.7 fL (35.1-46.3); White Blood Cell Count 10.42 K/mm3 (4.00-11.30)
--- NOTE | 2019-07-17 06:23 | NUR ---
REMEDIATION CONSULTANT SUMMARY Patient started shift with a a VEWS score of 6. with an elevated temp, HR and BP. (see vital signs flowsheet) , after receiving new orders for IV metoprolol, tele and motrin elixer, all elevated vitals resolved to baseline. Patient tolerating jevity 1.2 tube feeding without discomfort or any residual. Per instruction, rate was just increased to 35ml/hr with 30 ml flush every 4 hours. Still very labile and unhappy about not being able to take anything oral but lemon glycerine swabs. At one point, patient attempted to drink sterile water that was in room for tube feed, but was stopped before he could. Again, was notified, and a one time dose of 0.5mg xanax was given via peg. Patient was able to relax and discuss his frustrations with this nurse in a rational fashion, then fall asleep for approx 3 hours.
--- NOTE | 2019-07-17 18:22 | NUR ---
a+o, cooperative with care, tried to sleep all day but worked with therapy, took medication and followed dr's orders mostly, repeatedly asked for something to drink and when he would be allowed to drink, explained his dx each time he would agree then later ask again, per dr's request changed size of wrap, diet changed as was cbg, blood sugar still running high but getting better, call light in reach, bed in low position, rm air, clinamix infusing, bolus feeding done, flushing
--- NOTE | 2019-07-18 04:18 | NUR ---
SHIFT SUMMARY ADMITTED FOR DKA. FULL CODE. PEG TUBE INSTALLED ON 07/16/19. PT IS STRICT NPO (HE IS VERY ANGRY ABOUT THIS AND DEMANDS ROOT BEER FILLED MOUTH SWABS CONTINUOUSLY), THIS PT HAS BEEN EVALUATED BY ST AND HAD A BARIUM SWALLOW EVAL, HE IS AN EXTREME ASPIRATION RISK. HE IS GIVEN BOLUS FEEDINGS VIA PEG, SCHEDULED. ALL MEDS ARE GIVEN CRUSHED VIA PEG. HE NEEDS HIS BLOOD GLUCOSE CHECKED BEFORE FEEDINGS AND BEFORE HUMALOG ADMIN. HE IS GIVEN INSULIN BEFORE FEEDINGS WELL (SEE EMAR FOR SPECIAL INSTRUCTIONS). HE HAS A RT BKA. TELEMETRY IS MONITORING: NSR W/PAC'S @ 82 BPM. HE APPEARS A&O X4, ON RA, SUCTIONS HIMSELF. HE IS AWAITING PLACEMENT. HX: DM2, FREQUENT FALLS, HTN.
--- NOTE | 2019-07-18 11:43 | NUR ---
allowing pt to have fluids via a spunge, pt insisting on holding the glass himself, limited amt and time, pt has cough and is self suctioning, nurse express concern r/pt choking or attempting to drink fluid, explained to pt the risk he was taking and strongly advised he not try drinking, provided him with a possible scenario for return to po foods in months not days, pt fed via tube sitting upright in bed, when feeding stopped pt lowered hob so he could sleep, reports fluid felt like it was coming up his throat, started coughing and using suction, nurse returned hob to as upright as it would go, coughing reduced, will try feeding smaller amt next time
--- NOTE | 2019-07-18 17:51 | NUR ---
trouble getting fluids to stay down, even sitting on side of bed pt states he felt that the food was coming up his throat, tried reducing amount infusing, finally after consulting the diatician cut amount in half gave with nausea medication, pt was able to tolerate feeding, will pass on to noc shift for next feeding
--- NOTE | 2019-07-19 06:25 | NUR ---
SHIFT SUMMARY PATIENT ALERT AND ORIENTED. DECLINED PM TUBE FEEDING. IV IN R HAND BECAME SWOLLEN AND TENDER TO FLUSH, IV WAS REMOVED AND NEW IV PLACED IN HIS R FOREARM. IV PATENT AND FLUSHED. PATIENT WAS PLEASANT OVERNIGHT. BED IN LOWEST POSITION WITH WHEELS LOCKED. CALL LIGHT WITHIN REACH. REPORT GIVEN TO ONCOMING RN.
--- NOTE | 2019-07-19 17:08 | NUR ---
continues to have issues processing food via the peg tube, and elisabet have been consulted, will implement orders and any suggestions that might work, up in wc exploring the halls during the day, compliant with care but, new iv working well, remains frusterated with need for being npo, rm air, call light in reach, a+o
--- NOTE | 2019-07-20 06:00 | NUR ---
SHIFT SUMMARY PATIENT ALERT AND ORIENTED. GOT UP INTO HIS WHEELCHAIR WITH MINIMAL ASSISTANCE AND WAS ABLE TO ROAM AROUND THE UNIT FOR A WHILE BEFORE GOING BACK TO BED. PATIENT HAD NO COMPLAINTS OF NAUSEA OR VOMITING OVERNIGHT.IV PATENT AND FLUSHED. BED IN LOWEST POSITION WITH WHEELS LOCKED. CALL LIGHT AND BELONGINGS WITHIN REACH. REPORT GIVEN TO ONCOMING RN.
--- NOTE | 2019-07-20 11:03 | NUR ---
THIS NURSE RECEIVED REPORT AT 0700 FROM STRUCTURER NURSE WHO STATED THAT THIS PATIENT WAS TO RECEIVE INTERMITTANT FEEDINGS STARTING AT 0800 AT A RATE OF 100ML/HR FOR 30 MINUTES. WHEN THIS NURSE WENT TO VERIFY THIS ACTION VIA ORDERS, THIS NURSE FOUND THAT THAT WAS NOT THE CASE. AT 0730 THIS NURSE CONTACTED RAMSES DUNCAN TO CLARIFY ORDERS. PATIENT STATED TO NURSE THAT HE DOES NOT WANT BOLUS FEEDS BECAUSE "THE WAY THEY MADE HIM FEEL SICK." THIS NURSE EDUCATED HIM ON ORDERS AND INITIATED FEEDING VIA [place] PUMP AT 0830 AT AT RATE OF 10 MLS/HR. PT HOB ELEVATED AT 45 DEGREES. PATIENT STATED THAT "THAT WAS NOT GOING TO HAPPEN." AND THAT CONTINUOUS FEEDS WERE NOT GOING TO WORK FOR HIM. HE STATED THAT HE WANTED TO NAP. THIS NURSE ADRESSED CONCERNS WITH RAMSES DUNCAN. DR BRITTON CALLED AT 1110 AND NOTIFIED THAT PATIENT WAS LAYING DOWN TO SLEEP DURING CONTINTUNOUS FEEDS DESPITE EDUCATION NOT TO. FEED HELD UNTIL PATIENT IS WILLING TO SIT UP AT 45 DEGREES. THIS NURSE WILL ALSO DISCUSS WITH RAMSES BRASHER ABOUT REDUCED VOLUME BOLUS FEEDS PER DR. BRITTON. CHANGES BEING MADE TO INSULIN COVERAGE AND CGS AT THIS TIME.
--- NOTE | 2019-07-20 14:09 | NUR ---
THIS NURSE CALLED DR BRITTON AGAIN TO UPDATE HER ON FEEDINGS AND INSULIN SCHEDULE. PER RAMSES DUNCAN, PATIENT WANTS TO SLEEP TODAY AND THEN INITIATE FEEDING SCHEDULE TONIGHT. PATIENT IS WILLING TO SIT UP AT 45 DEGREES TONIGHT AND WANTS TO SLEEP TODAY. CBG Q6 AT THIS POINT AND HUMALOG LSS Q6. PT SLEEPING COMFORTABLY AT THIS TIME.
--- NOTE | 2019-07-20 15:06 | NUR ---
Spiritual care note: Mr. Johnson was withdrawn and sleepy today. Try as I might, I could not get him to engage in conversation. I will continue to attempt visits to offer bereavement prevocational/rehabilitation counselor for loss of father.
--- NOTE | 2019-07-20 18:11 | NUR ---
SHIFTS SUMMARY PT AXO, IRRITABLE AND NON COMPLIANT WITH PEG TUBE FEEDINGS THIS SHIFT. PT STATES THAT HE IS UPSET BECAUSE HIS FATHER'S HOUSE IS "UNLIVABLE" AND THAT HE IS NOT GOING TO BE ABLE TO AFFORD A HOTEL AND CANNOT CARE FOR HIMSELF AT THIS POINT. HE STATES THAT HE IS "TOO WEAK" FOR PROSTHETIC LEG THAT HE WEARS AT BASELINE AND THAT HE "DRIVES EVEN THOUGH HE SHOULDN'T." PT NEEDS EXTENSIVE EDUCATION ABOUT HOW TO ADMINISTER MEDICATIONS AND FEEDINGS THROUGH PEG TUBE. THIS NURSE OFFERED THERAPEUTIC COMMINICATION AND ACTIVE LISTENING TO CALM PATIENT BUT PATIENT CONTINUES TO BE UPSET. IV PATENT AND SALINE LOCKED. PT DENIES PAIN, SOB. MEDICATED PER EMAR FOR NAUSEA. SEE PRIOR NOTES ABOUT PEG TUBE FEEDINGS. UP TO WHEELCHAIR, SBA THOUGH PATIENT DOES NOT CALL WHEN HE WANTS TO GET UP. BED IN LOW POSITION, CALL LIGHT WITHIN REACH. DR BRITTON AWARE OF FEEDINGS AND PT EMOTIONAL STATE.
--- NOTE | 2019-07-20 20:38 | NUR ---
ASSUMED CARE. WILL IS SITTING UP IN BED, JUST GOT OFF THE PHONE WITH HIS SISTER. STATES HE PLANS TO GO TO [place] TOMORROW. HE IS HAVING HIS SISTER COME OVER HERE AND GET HIM. INFORMED HIM THAT NEED TO HOOK HIM UP TO HIS TUBE FEED. HE REFUSED HIS FEED FOR TONIGHT, STATES IF HE CAN'T HAVE IT BY GRAVITY THEN HE DOES NOT WANT IT. "I HAVE TO DO IT BY MYSELF WHEN I LEAVE, AND IT WON'T BE BY THE PUMP." INFORMED HIM THAT I CAN TALK TO THE NIGHT DOCTOR ABOUT IT, HE SAID DON'T BOTHER HE JUST WONT DUE TO FOR TONIGHT. EXPLAINED TO HIM THE IMPORTANCE AND THAT IT WOULD BE AT A SLOWER RATE, HE STILL DENIED IT. ALSO DENIED HIS 2100 MEDICATION. STATES HE IS DONE WITH THIS PLACE AND WILL BE LEAVING TOMORROW. WILL KEEP A MONITOR ON HIS BLOOD SUGARS, HE IS SWABING HIS MOUTH WITH SODA AND SWEARS HE IS NOT DRINKING IT. PEG TUBE SITE IS CLEAN AND DRY. TELE ON AND IN PLACE RUNNING SINUS. DENIES ANY COMPLAINTS AT THIS TIME. WILL CONTINUE TO MONITOR.
--- NOTE | 2019-07-20 22:45 | NUR ---
WILL IS UP IN HIS WHEELCHAIR AND OUT IN THE [place]. GOT HIMSELF TO THE WHEELCHAIR. HE STATED HE WAS GOING FOR A STROLL. WILL BE BACK.
--- NOTE | 2019-07-20 23:56 | NUR ---
BS CHECKED NO COVERAGE NEEDED. GAVE REGLAN. HE WAS LAYING DOWN TO SLEEP FOR THE NIGHT. CALL LIGHT IN REACH. NO NEEDS NOTED.
--- NOTE | 2019-07-21 00:41 | NUR ---
WILL ASLEEP IN BED WITH NO DISTRESS NOTED. CALL LIGHT IN REACH.
--- NOTE | 2019-07-21 03:42 | NUR ---
WILL IS OUT OF THE ROOM FOR A STROLL AGAIN IN HIS WHEELCHAIR.
--- NOTE | 2019-07-21 05:29 | NUR ---
SHIFT SUMMARY: WILL IS AO, IRRITABLE ABOUT HIS LIFE SITUATION AND HOW HE IS GOING TO CARE FOR HIMSELF. HE HAS BEEN NON-COMPLIANT WITH HIS PEG TUBE, HE REFUSED FEEDING TONIGHT. STATES HE WANTS TO DO IT BY GRAVITY ONLY OR HE WILL NOT DO IT. INFORMED MD OF THE SITUATION. HE AGAIN ESPRESSED HIS CONCERNS ABOUT HIS LIVING SITUATION AND HOW HE WILL NOT BE ABLE TO LIVE THERE. HE SPOKE TO HIS SISTER ABOUT COMING TO [place] AND PICKING HIM UP. STATES IT WILL BE TODAY. UNSURE HOW TRUE THAT IS. PROVIDED EDUCATION ON IMPORTANCE OF NPO, TUBE FEEDING, AND DEMENSTRATED TO HIM HOW TO ADMINISTER MEDICATIONS. HE FEELS HE CAN HANDLE IT WELL IF HE IS IN THE RIGHT PLACE. DISPITE PROVIDING THERAPEUTIC COMMUNICATION HE STILL REFUSED HIS TUBE FEEDING FOR THE NIGHT. BLOOD SUGARS Q6 WITH RESULTS ABOVE 100. HE KEPT CLEAR LIQUIDS AT BEDSIDE USING A SWAB TO MOISTEN HIS MOUTH AND KEEP BLOOD SUGARS ELEVATED. NOT SURE HOW TRUE THIS IS AND IF HE IS NOT DRINKING THE LIQUID. MEDS WERE GIVEN PER EMAR. IV REMAINED PATENT. HE DID GET UP TWICE IN HIS WHEELCHAIR AND STROLLED IN THE HALLS. TELEMETRY REPORTED SINUS THIS SHIFT. NO OTHER CHANGES TO REPORT THIS SHIFT. WILL REPORT OFF TO DAY SHIFT.
--- NOTE | 2019-07-21 11:34 | NUR ---
NURSE IN TO ADMINISTER SECOND PEG TUBE FEEDING FOR THE DAY. PT REFUSED STATED THAT HE WANTS TO LAY DOWN FOR A WHILE. WILL NOTIFY DR CHILDERS AND RAMSES DUNCAN.
--- NOTE | 2019-07-21 12:06 | NUR ---
Pt resting in bed upon arrival. Pt reports being angry. Engaged in therapeutic listening as Pt expresses anxiety and displeasure regarding his current situation and discharge plan. He states wanting to go to SNF for continued education of feeding tube and rehabilitation. Pt states staff can talk to him until they are blue in the face but they don't understand because they are not in his situation. Continued therapeutic listening to allow Pt to vent. Pt states he is done and wishes to end the visit. Pt agreeable for this RN to visit tomorrow. Spoke with Bedside JUDY Singh and discussed case. Spoke with [facility] prior to Pt visit and discussed case. Spoke with Caremanfarhan Gary and relayed Pt's concerns and wishes. Palliative Care will remain available.
--- NOTE | 2019-07-21 14:49 | NUR ---
PT AGREED TO BOLUS FEED OF 100ML. PT WAS ABOUT TO COMPLETE TUBE FEEDING HIMSELF WITH MINIMAL VERBAL CUES FROM NURSE. THIS MORNING AT 0915 WHEN NURSE WAS IN FOR MED ADMINISTRATION AND PEG TUBE FEEDING NURSE AND PATIENT DISCUSSED HOW TO COMPLETE MEDICATION ADMINISTRATION AND FEEDINGS THROUGH TUBE. PT DEMONSTRATED UNDERSTANDING. THERAPEUTIC COMMUNICATION AND ACTIVE LISTENING UTILIZED. THEN SPEECH THERAPY DISCUSSED CASE WITH NURSE AT ABOUT 1100. PT HAD AT BEDSIDE TWO CUPS HALF FULL EACH OF CLEAR LIQUIDS AT 0900 THEN AT 1100, THEY WERE BOTH GONE. SPEECH THERAPY EXPRESSED CONCERN ABOUT PATIENT HAVING THE LIQUIDS AT BEDSIDE AND STRONGLY SUGGEST STRICT NPO. PATIENT THEN REQUESTED ANOTHER CUP OF WATER. WHEN NURSE STATED THAT SHE COULD NOT ACCOMODATE REQUEST, THE PATIENT BECAME UPSET AND STATED THAT IT WAS HIS DECISION TO MAKE. THIS NURSE EDUCATED HIM ABOUT ASPIRATION AND RISKS. PT THEN COVERED HIS HEAD WITH A PILLOW AND REFUSED TO TALK TO NURSE. REFUSING MEDICATIONS AND BOLUS FEEDING WELL. DR CHILDERS NOTIFIED. THEN AT 1440, PT AGREED TO ANOTHER FEEDING WHERE HE WAS ABLE TO BOLUS FEED HIMSELF AND CHECK RESIDUAL. PT APOLOGIZED FOR GETTING UPSET WITH NURSE. AGAIN THERAPEUTIC COMMUNICATION AND ACTIVE LISTENING UTILIZED.
--- NOTE | 2019-07-21 16:20 | NUR ---
Spiritual care note: Mohamud was awake and alert when I visited. I engaged him in theraputic conversation about the loss of his father. According to Mohamud, his father was a proud, intelligent, self-sufficient man. When Mohamud realized his father had mentally declined, he immediately gave up his life in [place] and came here to care for him. Mohamud spoke atlength about his father's condition and the condition of the home. He admits it was devestating to see his father "that way." Mohamud would often become tearful while we spoke, but then pull back emotionally. Yet, he kept talking about his sorrow and fears for his future. He apologized profusely for "being so mean to the staff here." He is clearly a gentle, caring man who has lost just about everything. His anger is justified and appropriate. I suspect it is also deeply grounded in grief. Mohamud responded well to me for a while. But, when his tearfulness could no be contained, he asked to end the visit. He did ask me to return in coming days. I will continue to provide gentle corporate counselor to Mohamud as schedule permits.
--- NOTE | 2019-07-21 17:55 | NUR ---
SHIFT SUMMARY PT AXO, IRRITABLE AND LABILE THROUGHOUT THE DAY. VSS. SEE PRIOR NOTES REGARDING BOLUS FEEDINGS AND PT BEHAVIOR. ANOTHER BOLUS FEEDING AT 1641 OF 100ML WHERE NURSE OBSERVED WHILE PATIENT COMPLETED BOLUS FEED AND SMALL FREE WATER FLUSH OF 70ML. PT EDUCATED REGARDING AMOUNT OF NUTRITION THAT HE NEEDS THROUGHOUT THE DAY AND HOW MUCH WATER HE SHOULD BE FLUSHING. PT OVERWHELMED AND EMOTIONAL. THERAPEUTIC COMMUNICATION AND ACTIVE LISTENING UTILIZED. THIS NURSE CALLED DR CHILDERS WHO IS OKAY WITH PT SWABBING HIS MOUTH WITH WATER TO KEEP IT MOIST. BED IN LOW POSITION, CALL LIGHT WITHIN REACH. PT HAS AGREED TO ONE MORE 100ML FEEDING AT 1999.
--- NOTE | 2019-07-21 19:50 | NUR ---
ASSUMED CARE. WILL IS AWAKE AND ASKING IF HE CAN DO THE TUBE FEEDING HIMSELF. SAT AND WATCHED HIM DUE THE PROCEDURE WITH NO PROBLEMS. HE WAS ABLE TO TAKE IN 150CC OF FOOD, AND FLUSHED WITH 60CC OF WATER. HE EVEN CHECKED RESIDUAL BEFORE DOING IT. ALL HE NEEDED HELP WITH IS GETTING THE SUPPLIES AND WATER. HE SAID THAT IS ALL HE WILL DO FOR TONIGHT. DISCUSSED THE AMOUNT HE IS SUPPSE TO BE GETTING IN AND EXPLAINED TO HIM HOW IT MAY SEEM LIKE ALOT BUT ACTUALLY IT IS LIKE A PLATE OF FOOD. THAT HELPED HIM SOME. HE WILL SIT UP FOR 30MIN AFTERWARDS. NO OTHER CHANGES FROM YESTERDAY. WILL CONTINUE TO MONITOR.
--- NOTE | 2019-07-21 22:53 | NUR ---
WILL IS LAYING DOWN IN BED, AWAKE, JUST STARTING TO GET SLEEPY. DENIES ANY NAUSEA OR UPSET STOMACH, NO HICCUPS, STOMACH FEELS FINE. DENIES ANY NEEDS AT THIS TIME. WILL CONTINUE TO MONITOR.
--- NOTE | 2019-07-22 02:00 | NUR ---
WILL IS SLEEPING WELL WITH NO SIGNS OF DISTRESS. CALL LIGHT IS IN REACH. DOOR OPEN.
--- NOTE | 2019-07-22 03:27 | NUR ---
WILL IS STILL SLEEPING WELL. CALL LIGHT IN REACH.
[2019-07-22 04:27] LABS: BASOPHILS ABSOLUTE AUTO 0.03 K/mm3 (0.00-0.23); BASOPHILS PERCENT AUTO 1 % (0-2); EOSINOPHILS ABSOLUTE AUTO 0.11 K/mm3 (0.00-0.68); EOSINOPHILS PERCENT AUTO 2 % (0-6); Hematocrit 35.9 % (37.0-53.0); IMMATURE GRAN ABSOLUTE AUTO 0.03 K/mm3 (0.00-0.10); IMMATURE GRAN PERCENT AUTO 1 % (0-1); LYMPHOCYTES PERCENT AUTO 25 % (21-46); MONOCYTES ABSOLUTE AUTO 0.51 K/mm3 (0.16-1.47); MONOCYTES PERCENT AUTO 10 % (4-13); Mean Corpuscular HGB 28.8 pg (26.0-34.0); Mean Corpuscular HGB Conc 33.4 g/dL (31.5-36.5); Mean Corpuscular Volume 86 fL (80-100); Mean Platelet Volume 9.3 fL (9.1-12.4); NEUTROPHILS ABSOLUTE AUTO 3.29 K/mm3 (1.96-9.15); NEUTROPHILS PERCENT AUTO 62 % (41-73); Platelet Count 263 K/mm3 (150-400); RDW Standard Deviation 40.6 fL (35.1-46.3); Red Blood Cell Count 4.16 M/mm3 (4.30-5.90); White Blood Cell Count 5.27 K/mm3 (4.00-11.30)
[2019-07-22 04:59] LABS: Alanine Aminotransfer (ALT/SGP 20 U/L (12-78); Albumin, Blood 2.1 g/dL (3.4-5.0); Albumin/Globulin Ratio 0.6 (0.8-1.8); Alk Phos 78 U/L (50-136); Anion Gap 3 mmol/L (6-16); Aspartate Aminotrans (AST/SGOT 11 U/L (12-37); Bilirubin, Total 0.6 mg/dL (0.1-1.0); Blood Urea Nitrogen 6 mg/dL (8-24); Bun/Creatinine Ratio 10.3 (12.0-20.0); CO2, Blood 29 mmol/L (21-32); Calcium, Blood 7.9 mg/dL (8.5-10.1); Chloride, Blood 105 mmol/L (98-108); Creatinine, Blood 0.58 mg/dL (0.60-1.20); Globulin, Blood 3.8 g/dL (2.2-4.0); Glomerular Filtration Rate >60 (60-); Glucose, Blood 120 mg/dL (70-99); Potassium, Blood 3.4 mmol/L (3.5-5.5); Sodium, Blood 137 mmol/L (136-145); Total Protein, Blood 5.9 g/dL (6.4-8.2)
--- NOTE | 2019-07-22 05:55 | NUR ---
SHIFT SUMMARY: ADITI DID BETTER TONIGHT. HE WAS ABLE TO DO HIS OWN FEED WITH LITTLE ASSISTANCE SUCH GETTING SUPPLIES. 150CC OF ISOSOURCE WAS TAKEN, WITH 60CC FLUSH AFTERWARDS, HE EVEN DID RESIDUAL CHECKS. AN EXTRA 180CC OF WATER WAS ALSO TAKEN. HE SAID THAT IS ALL HE WANTED TO DO FOR TONIGHT. HE STILL FEELS HE WILL NOT BE ABLE TO TOLERATE THE AMOUNT ORDERED. EXPLAINED TO HIM THE SIZE COMPARISON TO A PLATE OF FOOD. HE DID REPORT THAT HE IS MOTIVATED TO GETTING BETTER AND IS EXPERIENCING HUNGER. THIS MIGHT MOTIVATE HIM TO INCREASE HIS AMOUNT TODAY. HE DID TAKE SLEEPING MEDS WITH A XANAX TO FINALLY GET SOME SLEEP. WHICH HE SUCCEEDED. VITALS REMAINED STABLE. NO OTHER CHANGES OCCURRED THIS SHIFT. WILL REPORT TO DAY SHIFT.
--- NOTE | 2019-07-22 16:28 | NUR ---
Spiritual care note: Mohamud was sleeping and did not stir to voice. I will attempt to see him tomorrow.
--- NOTE | 2019-07-22 18:46 | NUR ---
SHIFT SUMMARY PATIENT TOLERATED 175ML OF TUBE FEEDING 2X TODAY. REFUSED EVENING FEED. THIS RN ENCOURAGED HIM TO DOUBLE HIS PRE AND POST WATER INTAKE TO HELP WITH HYDRATION. HE TOLERATED THIS WELL. PATIENT CONVERSIVE ABOUT HIS FRUSTRATION WITH TUBE FEEDINGS AND HIS DESIRE TO HAVE ORAL FOOD. CONTINUES TO WORK WITH SPEECH. IS HOPEFUL HE WILL BE ABLE TO TOLERATE PO INTAKE IN THE FUTURE. SLEPT ON AND OFF TODAY. NO ACUTE ISSUES NOTED.
--- NOTE | 2019-07-22 22:21 | NUR ---
1930 PT WAS NOTED TO HAVE LEFT MEDICAL FLOOR UNIT VIA WHEELCHAIR; THIS NURSE WAS UNABLE TO LOCATE PATIENT ON FLOOR AND ALERTED DREW CARVALHO RN, CHARGE NURSE OF SUCH. THIS NURSE LOCATED PATIENT IN [place] WITH 1/2 BOTTLE EMPTY AND BAG OF CHIPS 1/2 EATEN WITH PATIENT VOICING HE HAS BEEN LEAVING UNIT BEFORE WITH NO ISSUE. PT THEN SWORE AT THIS NURSE THAT HE IS HUNGRY AND DESIRES TO EAT WITH THIS NURSE EXPLAINING TO PATIENT NPO STATUS DUE TO POSSIBLE ASPIRATION AND ALSO THAT HE IS REQUIRED TO STAY ON MEDICAL FLOOR AT ALL TIMES DUE TO CURRENT COVID 19 CONCERNS. PT BECAME LOUD AND OBNOXIOUS AT THIS TIME WHILE WHEELING SELF TO ROOM. THIS NURSE CONTACTED DREW CARVALHO RN AND ADVISED HER OF ALL THE ABOVE WITH DREW THEN GOING INTO ROOM (THIS NURSE STOOD AT DOORWAY OUT VIEW OF PATIENT) AND REVIEWING ALL THE ABOVE CONCERNS AGAIN WITH PATIENT GRUDGINGLY ACKNOWLEDGING THAT HE WILL REFRAIN FROM LEAVING UNIT AND WILL NOT EAT ANY FOOD EXCEPT THE RESOURCE 1.5CAL TO BE INSTILLED VIA HIS PEG TUBE. DREW CARVALHO THEN REMOVED THE BOTTLE AND BAG OF CHIPS FROM ROOM WITH PATIENT OK WITH THIS OCCURENCE.
--- NOTE | 2019-07-23 04:12 | NUR ---
SHIFT SUMMARY: 64 Y/O MALE RESTED COMFORTABLY ALL SHIFT; DENIES PAIN OR NAUSEA; PT DEMONSTRATED GOOD TECHNIQUE WITH PEG TUBE; DENIES PAIN OR NAUSEA; BED LOW POSITION WITH CALL LIGHT AT SIDE.
--- NOTE | 2019-07-23 08:00 | NUR ---
PT WAS ANGRY ABOUT BEING WOKE UP FOR MORNING MEDS AND TUBE FEEDING. PT DEMONSTRATE HOW TO ADMINSTER MEDICATION THROUGH PEG TUBE , ALONG WITH BOLUS FEED AND TAB WATER FLUSH. PT WAS ONLY WILLING TO ADMINSTER 250CC OF FEEDING AT THIS TIME AND REQUESTED TO NOT BE BOTHERED. TALKED WITH PT ABOUT PERFORMING ASSESMENT AT THIS TIME AND HE SPIT WATER AT ME, PT REPORTED THIS BEING ACCIDENT AND THIS NURSE SHOULD NOT ASK QUESTIONS WHEN RINSING MOUTH.
--- NOTE | 2019-07-23 12:17 | NUR ---
PT DECLINES BOLUS FEDD AT THIS TIME DR. CHILDERS NOTIFIED.
--- NOTE | 2019-07-23 17:22 | NUR ---
SHIFT SUMMARY PT HAS HAD NO CHANGES DURING THIS SHIFT. PT PERFORMED ALL FEEDING AND WATER BLOUSES WITH PEG TUBE THIS SHIFT. PT HAS DENIED PAIN DURING THIS SHIFT, THE PT IS NPO. PT WILL CALL FOR ASSISTANCE AND HAS CALL LIGHT WITH IN REACH, WILL COUNTINUE TO MONITOR AND REPORT TO ON COMING SHIFT.
--- NOTE | 2019-07-24 04:21 | NUR ---
SHIFT SUMMARY POD 3 PEG TUBE PLACEMENT. PT DENIED PAIN DURING SHIFT. MEDS GIVEN WITH 30ML FLUSH. PT DECLINED FEEDING TONIGHT. PT ASKED TO BE ALLOWED TO SLEEP DURING SHIFT. PT HAS BEEN RESTING AND REPOSITIONING IN BED DENIES NEEDS T/O SHIFT
--- NOTE | 2019-07-24 18:31 | NUR ---
PT IS DOING HIS OWN FEEDING . TOLERATING WELL. NO ACUTE CHANGES.
--- NOTE | 2019-07-25 03:36 | NUR ---
SHIFT SUMMARY ASSUMED CARE OF PT AT 1900. PT IS A/OX4, DENIES N/T IN EXTREMITES AT THIS TIME. HEART SOUNDS REGULAR, LUNG SOUNDS DIMINISHED, DENIES CP/SOB AT THIS TIME. ABD MILDLY DISTENED, PEGTUBE DRAINING WITH GRAVITY, WOUND CARE AND NEW DRESSING APPLIED TO INCISION. PT DID NOT TAKE HIS LAST FEEDING THIS PM BEUCASE HE STATED THAT HE THINKS THAT HE IS GETTING TO MUCH FOOD AND HE DOESNT FEEL LIKE TAKING IT. NO ACUTE EVENTS DURING THE NIGHT. PT SLEPT MOST OF THE NIGHT. CALL LIGHT IN REACH, BED IN LOWEST POSTION, WILL CONTINUE TO MONITOR UNTIL DAYSHIFT NURSE ARRIVES.
[2019-07-25 05:21] LABS: Hematocrit 35.2 % (37.0-53.0); Hemoglobin 11.8 g/dL (13.5-17.5); Mean Corpuscular HGB 28.7 pg (26.0-34.0); Mean Corpuscular HGB Conc 33.5 g/dL (31.5-36.5); Mean Corpuscular Volume 86 fL (80-100); Mean Platelet Volume 9.1 fL (9.1-12.4); Platelet Count 273 K/mm3 (150-400); RDW Coefficient Variation 12.9 % (11.7-14.2); RDW Standard Deviation 39.7 fL (35.1-46.3); Red Blood Cell Count 4.11 M/mm3 (4.30-5.90); White Blood Cell Count 4.65 K/mm3 (4.00-11.30)
[2019-07-25 05:55] LABS: Anion Gap 5 mmol/L (6-16); Blood Urea Nitrogen 5 mg/dL (8-24); Bun/Creatinine Ratio 9.1 (12.0-20.0); CHOL/HDL RATIO 6.4; CO2, Blood 28 mmol/L (21-32); Calcium, Blood 8.3 mg/dL (8.5-10.1); Chloride, Blood 103 mmol/L (98-108); Cholesterol 141 mg/dL (50-200); Creatinine, Blood 0.55 mg/dL (0.60-1.20); Glomerular Filtration Rate >60 (60-); Glucose, Blood 149 mg/dL (70-99); HDL Cholesterol 22 mg/dL (>39); LDL/HDL RATIO 4.3; Low Density Lipoprotein Chol 95 mg/dL (0-110); Phosphorus, Blood 2.3 mg/dL (2.5-4.9); Potassium, Blood 3.8 mmol/L (3.5-5.5); Sodium, Blood 136 mmol/L (136-145); Triglycerides 118 mg/dL (30-160); Very Low Density Lipoprot Chol 23 mg/dL (6-32)
--- NOTE | 2019-07-25 18:08 | NUR ---
Shift Summary A/Ox3, pleasant 64 yo who has been up to bathroom with w/c independently. Patient has refused feedings and had only 1 can so far this shift. Residual is zero from first feeding. Patient did allow this RN to assist with feeding and medication administration. Denies pain, no acute concerns. Uneventful day.
--- NOTE | 2019-07-26 03:41 | NUR ---
SHIFT SUMMARY ASSUMED CARE OF PT AT 1900. PT IS A/OX4, DENIES N/T IN EXTREMITES. HEART SOUNDS REGULAR, LUNG SOUNDS CLEAR, DENIES SOB/CP AT THIS TIME. PEG TUBE INSERTION SITE C/D/I. ABD BINDER ON. PERIAREA SLIGHTLY REDDENED. PT STATES THAT HE ANT EAT MUCH PEOPLEA RE ASKING HIM TOO BEUCASE HE FEELS LIKE HE HAS TO THROW UP AFTER IT. EDUCATED PT ON STAYING UPRIGHT FOR 30MIN AFTER FEEDING TO HELP WITH DIGESTION. PT ALSO C/O DIARRHEA. NO ACUTE EVENTS DURING THE NIGHT. PT SLEPT T/O THE NIGHT. CALL LIGHT IN REACH, BED IN LOWEST POSTION, WILL CONTINUE TO MONITOR UNTIL DAYSHIFT NURSE ARRIVES.
--- NOTE | 2019-07-26 14:01 | NUR ---
IMODIUM Patient c/o loose stools since being started on tube feedings. Discussed with Dr. Valle and Miriam ([employer] Spray Unit Feeder). Imodium ordered for one time dose per Dr. Valle. Miriam will f/u with Dr. Valle RE the possibility of adding bantrol and probiotics.
--- NOTE | 2019-07-26 19:03 | NUR ---
Shift Summmary Patient fed self x2 this shift. C/O diarrhea and had an accident with stool in bed. Imodium was given with good results. Patient was encouraged to do oral care, patient declined. Otherwise, no acute concerns.
--- NOTE | 2019-07-27 04:31 | NUR ---
SHIFT SUMMARY ASSUMED CARE OF PT AT 1900. PT IS A/OX4, DENIES N/T IN EXTREMITES. HEART SOUNDS REGULAR, LUNG SOUNDS CLEAR, DENIES CP/SOB AT THIS TIME. PT HAS NO NEW COMPLAINTS TODAY. PT STATES HE IS STILL HAVING DIARRHEA, MEDICATED PER EMAR. PEG TUBE DRAINING WELL. PT STATED THAT HE DIDNT WANT ANYTHING ELSE TO EAT TONIGHT. NO ACUTE EVENTS DURING THE NIGHT. PT SLEPT ON AND OFF T/O THE NIGHT. CALL LIGHT IN REACH, BED IN LOWEST POSITION, WILL CONTINUE TO MONITOR UNTIL DAYSHIFT NURSE ARRIVES.
[2019-07-27 05:27] LABS: Albumin, Blood 2.1 g/dL (3.4-5.0); Anion Gap 5 mmol/L (6-16); Blood Urea Nitrogen 5 mg/dL (8-24); Bun/Creatinine Ratio 8.8 (12.0-20.0); CO2, Blood 29 mmol/L (21-32); Calcium, Blood 8.1 mg/dL (8.5-10.1); Chloride, Blood 104 mmol/L (98-108); Creatinine, Blood 0.57 mg/dL (0.60-1.20); Glomerular Filtration Rate >60 (60-); Glucose, Blood 194 mg/dL (70-99); Potassium, Blood 4.1 mmol/L (3.5-5.5); Sodium, Blood 138 mmol/L (136-145)
--- NOTE | 2019-07-27 19:21 | NUR ---
SHIFT SUMMARY: NO ACUTE CHANGES TO REPORT THIS SHIFT. PT A&O; IRRITABLE; UNCOOPERATIVE WITH CARE. NO C/O PAIN THIS SHIFT. PT SELF TRANSFERS TO W/C. PO MEDS CRUSHED THROUGH PEG TUBE. PT SELF ADMINISTERS ISOSOURCE 1.5 c RN ASSIST. AWAITING PLACEMENT. REPORT GIVEN TO ONCOMING RN.
--- NOTE | 2019-07-27 20:22 | NUR ---
PT STATUS PT HAS REFUSED TUBE FEEDINGS AND FLUSHES FOR TONIGHT. HE STATES HE HAS HAD ENOUGH OF BOTH FOR TODAY. HE DID ACCEPT HIS MEDICATIONS (AND THE 30 ML FLUSHES BEFORE AND AFTER MEDS).
--- NOTE | 2019-07-28 04:04 | NUR ---
SHIFT SUMMARY ADMITTED FOR DKA. FULL CODE. PEG TUBE PLACED ON 07/16/2019. NPO DUE TO DYSPHAGIA. FEEDINGS/FLUSHES ARE SCHEDULED. PT REFUSED FEEDINGS AND FLUSHINGS THIS SHIFT, STATING "I'VE HAD ENOUGH FOR TODAY". PT STILL VERY ANGRY ABOUT NPO STATUS. PT DID ACCEPT HIS MEDICATIONS AND THE 30 ML FLUSHES BEFORE AND AFTER CORRECTIONAL GUARD. ME PATIENT AWAITING PLACEMENT, CARE MANAGEMENT IS WORKING ON THIS. RIGHT LEG BKA. GLUCOSE CHEMSTICKS BEFORE FEEDINGS.
[2019-07-28 05:20] LABS: Albumin, Blood 2.2 g/dL (3.4-5.0); Anion Gap 5 mmol/L (6-16); Blood Urea Nitrogen 5 mg/dL (8-24); Bun/Creatinine Ratio 9.1 (12.0-20.0); CO2, Blood 29 mmol/L (21-32); Calcium, Blood 8.3 mg/dL (8.5-10.1); Chloride, Blood 103 mmol/L (98-108); Creatinine, Blood 0.55 mg/dL (0.60-1.20); Glomerular Filtration Rate >60 (60-); Glucose, Blood 113 mg/dL (70-99); Phosphorus, Blood 2.9 mg/dL (2.5-4.9); Potassium, Blood 3.8 mmol/L (3.5-5.5); Sodium, Blood 137 mmol/L (136-145)
--- NOTE | 2019-07-28 15:39 | NUR ---
Spiritual care visit: Mr. Johnson was polietly dismissive. I will remain available.
--- NOTE | 2019-07-28 19:11 | NUR ---
SHIFT SUMMARY: NO ACUTE CHANGES TO REPORT THIS SHIFT. PT A&O; OCC IRRITABLE; PT CHOOSES WHICH NURSING CARE HE WILL ACCEPT, ESPECIALLY R/T PEG TUBE FEEDINGS; EDUCATION SPROVIDED ON IMPORTANCE OF MAINTAINING FEEDING SCHEDULE. NO C/O PAIN THIS SHIFT. COVID-19 SWAB R/T POSSIBLE [facility] PLACEMENT. REPORT GIVEN TO ONCOMING RN.
--- NOTE | 2019-07-29 04:43 | NUR ---
SHIFT SUMMARY: PATIENT IS A&OX4, NON COMPLIANT WITH BOLUS TUBE FEEDS AND FREE WATER FLUSHES. PATIENT ONLY DID TWO FEEDS ON DAY SHIFT AND REFUSED TO DO ANY ON EVENING SHIFT OR THROUGH THE NIGHT. IS WAS NOTED THAT THE PATIENT WAS SITTING IN HIGH FOWLERS AT START OF SHIFT, "I NEED TO STAY SITTING UP HIGH AFTER THE TUBE FEED." PATIENT IS REPORTING HEADACHE WHICH HE DOES NOT USUALLY HAVE. ASPHALT PAVING FOREMAN GIVES EDUCATION, DUE TO SKIPPING BOLUS FEEDS AND FREE WATER FLUSHES HE WILL BECOME DEHYDRATED AND THIS WILL CAUSE HEADACHE. PATIENT REFUSES NEED OF PAIN MED BUT DOES REQUEST XANAX FOR ANXIETY.
--- NOTE | 2019-07-29 07:00 | NUR ---
ASSUMED CARE: PT RESTING QUIETLY AT THIS TIME. SPEAKS TO STAFF DURING REPORT, DENIES NEEDS.
--- NOTE | 2019-07-29 09:03 | NUR ---
PT INSISTING ON DOING PEG TUBE MANAGEMENT AND DECLINES ASSISTANCE. PT APPEARS AGITATED AND DEPRESSED AND IS ABRASIVE WHEN ATTEMPTING TO DISCUSS CONCERNS OR INSTRUCTION. STATES HE HAS BEEN ADMINISTERING FEEDING BUT NOT FLUSHES. INSTRUCTED THAT THOSE ARE NEEDED TO PREVENT DEHYDRATION.
--- NOTE | 2019-07-29 09:57 | NUR ---
CHECKED IN WITH PT AFTER FEED. DENIED NEEDS OR CONCERNS. STATED HE HAD TO SIT UPRIGHT FOR 4O MINUTES. ASKED IF HE NOTICED ANY RESIDUAL AND HIS ONLY ANSWER WAS "I'M FINE."
--- NOTE | 2019-07-29 14:38 | NUR ---
DISCUSSED WITH DR LINDA BOWEL CARE FOR PT. PT STATES HE IS NO LONGER HAVING DIARRHEA BUT CONSTIPATION. DUE TO DC TO SNF STATED HE WOULD PLACE ORDERS TO ADDRESS THIS.
--- NOTE | 2019-07-29 17:05 | NUR ---
OFFERED PT MIRALAX FOR BOWEL CARE. DECLINED AT THIS TIME.
--- NOTE | 2019-07-29 17:46 | NUR ---
SHIFT SUMMARY: PT HAS BEEN COOPERATIVE IN THE FACT THAT HE ADMINISTERED MEDS, FLUIDS AND FEEDINGS BUT DECLINED ASSISTANCE OR LET NURSING STAFF DO RESIDUALS. AWAITING SECOND [facility] RESULT [facility]. DENIES FURTHER NEEDS OR CONCERNS.
--- NOTE | 2019-07-30 07:46 | NUR ---
SHIFT SUMMARY: PATIENT IS A&O X4, VS ARE STABLE, NO COMPLIANTS OF PAIN. PATIENT CONTINUES TO BE NON COMPLIANT WITH TUBE FEED RECOMENDATIONS BY DIETARY AND MD ORDERS. CONTINUED EDUCATION IS GIVEN. PATIENT PREFERS TO DO ALL ADMINISTRATION VIA PT INCLUDING MEDICATIONS AFTER THEY ARE SCANNED AND CRUSHED AND DESOLVED FOR ADMINISTRATION. PEG TUBE SITE HAS GREEN FOUL SMELLING DRAINAGE. SITE IS CLEANS, DRIED AND DRAIN SPONG APPLIED WITH ABD BINDER TO COVER.
--- NOTE | 2019-07-30 15:53 | NUR ---
SUMMARY PT IS A/O X4, GENERALLY PLEASANT HOWEVER IRRITABLE, STATE FRUSTRATION w HOSP ROUTINE, ESPECIALLY w TUBE FEEDING PLAN. STATE HE WILL FEED HIMSELF WHEN HE IS READY, HE MANAGES PEG TUBE INDEPENDANTLY, STATE NO RESIDUAL SO FAR TODAY. HE SKIPPED 10AM TF, TOOK 1 CAN @ APPROX 11AM. TOOK 300ML WATER SO FAR TODAY. HE IS UNHAPPY w SPEECH THERAPIST TODAY R/T CONTINUING NPO STATUS. HX R BKA, STATE ABLE TO TRANSFER TO W/C IND, @ BEDSIDE. DR LINDA, VOCATIONAL CASE MANAGER ROOSEVELT CARBAJAL PLANNING D/C IN AM SO PT CAN FLY FROM [place] [facility]. PT STATE HIS NEPHEW MAY BE ABLE TO DRIVE HIM TO AIRPORT, WAITING FOR CONFIRMATION. VSS.
--- NOTE | 2019-07-30 21:18 | NUR ---
2029 PT C/O DIARRHEA; DECLINES ANYMORE PEG TUBE FEEDINGS TONIGHT AND REQUESTING IMMODIUM WITH MD NOTIFIED VIA FATOU HARRISON RN AND ORDER RECEIVED. 2114 PT DEMONSTRATED GOOD TECHNIQUE WITH INFUSING MEDS AND FLUSHING PEG WITH WATER.
--- NOTE | 2019-07-31 03:13 | NUR ---
SHIFT SUMMARY: 64 Y/O MALE RESTED COMFORTABLY ALL SHIFT; PT HAD C/O DIARRHEA BEGINNING OF SHIFT (IMMODIUM 2MG PO GIVEN VIA PEG TUBE) WITH NO FURTHER ISSUES VOICED OR NOTED; PT CONTINUES TO DEMONSTRATED KNOWLEDGE AND ABILITY TO MANAGE PEG TUBE FEEDINGS (FLUSHED TUBE WITH MEDS AND WATER LAST NIGHT; NO TUBE FEEDINGS PERFORMED DUE DIARRHEA); DENIES PAIN OR NAUSEA; PT NPO; PT SCHEDULED FOR POSSIBLE DISCHARGE TODAY; BED LOW POSITION WITH CALL LIGHT AT SIDE.
--- NOTE | 2019-07-31 07:41 | NUR ---
PT IS IRRITABLE, GROUCHY, FRUSTATED THIS AM. REFUSES AM MEDS, REFUSES PEG TUBE FEEDING. STATE HE WILL SELF ADMINISTER DESIRED. DECLINES PEG TUBE ASSESSMENT, SITE COVERED w RONNI ROJAS. ALLOWS PARTIAL ASSESSMENT. CBG 227, HE ALLOWS LONG ACTING INSULIN. STATE HE HAS CALLED FAMILY MEMBER FOR TRANSPORT TO [facility] FOR FLIGHT TO [facility] ARRANGED BY PRODUCTION PACKAGER, STATE HE IS LEAVING WHEN THEY ARRIVE WHETHER DR SLITTER AND CUTTER OPERATOR HAVE ORDERS PREPARED OR NOT. PLUG OVERWRAP MACHINE TENDER NOTIFIED ATTEMPTING TO NOTIFY DR SLITTER AND CUTTER OPERATOR.
[2019-07-31] MEDS ORDERED: INSULANPEN SC (08:53)
[2019-07-31] MEDS ORDERED: Prinivil10 MG PT (08:54)
[2019-07-31] MEDS ORDERED: FLUC200 PT (08:54)
[2019-07-31] MEDS ORDERED: Humalog100 UNIT/1 SC (08:57)
[2019-07-31] MEDS ORDERED: MIRT30 PT (08:58)
[2019-07-31] MEDS ORDERED: omeprazole PT (09:00)
--- NOTE | 2019-07-31 10:46 | NUR ---
TRANSFER TO FACILITY PT SELF ADMIN PEG TUBE FEEDING & WATER @ HIS CONVENIENCE THIS AM APPROX 0930. HE REFUSE SHOWER OR ASSIST GETTING DRESSED & READY FOR D/C. DR LINDA & DIRECTOR DIGITAL ADVERTISING PREPARE ORDERS & MAKE ARRANGEMENTS FOR TRANSFER TO FACILITY IN [facility]. HEALTHCARE INSURANCE SALES AGENT PROVIDE PT PACKET w FLIGHT INSTRUCT/TICKET, ETC. TUBE FEED SUPPLIES PREPARED FOR PT HOWEVER HE WOULD ONLY TAKE TWO CANS. HE STATED CONCERNS R/T NEED FOR CRUTCHES @ AIRPORT HOWEVER HEALTHCARE INSURANCE SALES AGENT REASSURE THAT HE WILL HAVE ASSISTANCE MANUVEURING THRU AIRPORT & DURING FLIGHT. NEPHEW HERE FOR TRANSPORT TO [place], PT ESCORTED FROM [facility] VIA W/C. AFFECT SOMEWHAT DISATISFIED DESPITE MULT ATTEMPTS TO PLEASE.
--- NOTE | 2019-07-31 11:33 | NUR ---
REPORT CALLED TO VIPUL GONZALEZ [facility] IN [place], [place]
== END 2019-07-31 09:55 | DRG 637 ==
LOC: ER 16:26 → MEDS 18:48 → ICUE 18:48 → ICUW 18:48 → ICUE 18:50 → MEDS 07-14 11:50 → ENPENDDIS 07-31 09:50 → MEDS 07-31 09:55
PROVIDERS: Emergency Medicine; Hospitalist; Internal Medicine; Nurse Practitioner Acute Care; Student in an Organized Health Care Education/Training Program; ADMIT Hospitalist
PROC: 0DH63UZ Insertion of Feeding Device into Stomach, Percutaneous Approach (ICD-10-PCS; 2019-07-16)
PROC: 0DD98ZX Extraction of Duodenum, Via Natural or Artificial Opening Endoscopic, Diagnostic (ICD-10-PCS; principal; 2019-07-16 12:00)
PROC: 0DD58ZX Extraction of Esophagus, Via Natural or Artificial Opening Endoscopic, Diagnostic (ICD-10-PCS; 2019-07-16 12:00)
DX: E11.10 Type 2 diabetes mellitus with ketoacidosis without coma (principal); G92 Toxic encephalopathy; J98.11 Atelectasis; B37.81 Candidal esophagitis; I10 Essential (primary) hypertension; Z89.511 Acquired absence of right leg below knee; Z87.891 Personal history of nicotine dependence; Z66 Do not resuscitate; R13.10 Dysphagia, unspecified; R29.6 Repeated falls; Z79.4 Long term (current) use of insulin; K29.80 Duodenitis without bleeding; K21.0 Gastro-esophageal reflux disease with esophagitis; G47.00 Insomnia, unspecified; E83.39 Other disorders of phosphorus metabolism
CPT/HCPCS: 36415; 51703; 70450; 71045; 74230; 80048; 80053; 80061; 80069; 81001; 82010; 82803; 82947; 83036; 83735; 83880; 84100; 84484; 85025; 85027; 88305; 88312; 92526; 92610; 92611; 93005; 93010; 96374; 96375; 97110; 97162; 97530; 99285-25; A9270-GY; C1769; C9113; J0360; J1815; J2060; J2405; J2550; J2704; J2765; J3010; J3480; J7030; J7042; J7120; U0003